=== PATIENT | male | born 1940 | race Caucasian/White ===

== ENCOUNTER 2022-10-05 10:00 | Day surgery (SDC) | payer MEDICARE, SELFPAY ==
[2022-10-05] MEDS: TETRACAINE 0.5% OPHTH 1 DROP EYE-RIGHT (07:27)
[2022-10-05] MEDS: TETRACAINE 0.5% OPHTH 1 DROP EYE-LEFT ×2 (07:27→11:31)
[2022-10-05] MEDS: LACTATED RINGERS 1000 ML 1,000 ML 100 ML IV (09:00)
[2022-10-05 10:24] VITALS: BMI 29.0
[2022-10-05 10:40] VITALS: BP 162/74; PULSE 56; RESP 16; TEMP 36.5; O2SAT 95
--- NOTE | 2022-10-05 10:48 | SUR.PREOP ---
covid test negative
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
[2022-10-05] MEDS: SODIUM CHLORIDE 0.9 % (FLUSH) 10 ML SYRINGE IVF (11:16)
--- NOTE | 2022-10-05 12:10 | W.ANESCHARGE ---
Anesthesia Charges Start Date/Time Anesthesia Start Date: 10/05/22 Anesthesia Start Time: 11:54 Stop Date/Time Anesthesia Stop Date: 10/05/22 Anesthesia Stop Time: 12:49 Summary Emergency: No Extremes of Age: Over 72-CPT 91240
[2022-10-05 12:49] VITALS: BP 193/93; PULSE 53; RESP 16; TEMP 36.3; O2SAT 99
[2022-10-05 13:00] VITALS: BP 185/96; PULSE 57; RESP 16; O2SAT 99
[2022-10-05 13:15] VITALS: BP 181/100; PULSE 58; RESP 16; O2SAT 99
--- NOTE | 2022-10-06 08:08 | P.OPTPRC_ITS ---
Procedure Note Date of procedure: 10/05/22 Will [facility] bill your pro fee for this procedure?: Yes Procedure Description: SURGEON: Jennyfer Baird MD PREOPERATIVE DIAGNOSIS: Dermatochalasis, bilateral upper eyelids. POSTOPERATIVE DIAGNOSIS: Dermatochalasis, bilateral upper eyelids. NAME OF OPERATION: Bilateral upper eyelid blepharoplasty. ANESTHESIA: Local monitored anesthesia care. ESTIMATED BLOOD LOSS: Less than 2 cc. COMPLICATIONS: None. IMPLANTS: None. INDICATIONS: The patient is seen today for bilateral upper eyelid blepharoplasty. The patient complains of upper eyelids interfering with vision. I reviewed the visual goldstein and facial photographs. Surgery was indicated for functional improvement of vision. The risks, benefits and alternatives were discussed pre-operatively. The risks included pain, infection, bleeding, poor cosmetic result, scarring, asymmetry, need for further treatment including surgery, inability to close lids, dry eyes, decreased vision, loss of vision and loss of eye. The benefits included improvement of symptoms. The alternative was observation and no surgery. All questions were answered to the patient's satisfaction, and the patient elected to proceed with the bilateral upper eyelid blepharoplasty. Informed consent was obtained. PROCEDURE: In a sitting position, the upper eyelid crease was marked with a marking pen, and the pinch technique was used to determine the amount of upper eyelid skin to be excised. A calipers was used to measure for symmetry and to confirm an appropriate amount of remaining skin. The patient was taken to the operating room. 4 cc of anesthetic was injected subcutaneously along the full extent of each upper eyelid. This anesthetic was made with 1:1 of 2% lidocaine with epinephrine and 0.5% bupivacaine. Both eyes were prepped and draped in the usual sterile ophthalmic fashion. The following was performed on both the right and left upper eyelid: A #15 blade was used to incise the skin. Bishops and Irma scissors were used to excise the skin and orbicularis muscle. Handheld cautery was used to achieve hemostasis. The eyelids were examined for symmetry. The skin was closed with a running 6-0 nylon suture. Erythromycin ointment was applied to the wounds. The patient tolerated the procedure well. DISPOSITION: The patient was sent to the recovery room and discharged to home in stable condition. The patient was given my postoperative instructions handout. The patient was told to ice as directed. The patient will apply erythromycin ophthalmic ointment to the eyelids three times a day until the sutures are removed, then for another three days. The patient will follow up in one week for suture removal or sooner as needed. The patient was instructed to call me or go to the emergency department with any sudden change, including dramatic loss of vision, excessive bleeding, redness or discharge from the incisions, or severe pain in the eye. Surgeon: Jennyfer Baird MD
== END 2022-10-05 13:37 | disposition home or self-care (01) ==
PROVIDERS: Visit Provider Ophthalmology
PROC: (CPT 15823; principal; 2022-10-05 10:00)
DX: H02.834 Dermatochalasis of left upper eyelid (principal); H02.831 Dermatochalasis of right upper eyelid; H53.8 Other visual disturbances
CPT/HCPCS: 15823; 00103; 99100; J2250; J2704; J7120